=== PATIENT | male | born 1960 | race Caucasian/White ===

== ENCOUNTER 2017-03-01 21:42 | Emergency (ER) | payer MEDICARE ==
--- NOTE | 2017-03-11 16:41 | ER ---
ADMIT: 03/01/2017 RM/LOC: ER [facility] MR#: [id number] [address] [id number] [place] [id number] [place] [id number] Emergency Room Report SEX: M AGE: 56 : 1960 DATE: 03/01/2017 A 56-year-old male comes to the Emergency Department with sudden onset of left- sided abdominal pain approximately 1 hour duration, sharp, stabbing. See T- sheet for remainder of history and physical. CT scan revealed a 4 mm calculus within the mid-left ureter. UA was unremarkable. The patient's pain was controlled. He was given a prescription for [place]. He has Flomax. He was instructed to follow up with Urology this week and to drink plenty of fluids. Tom Grey MD/ russ JOB #: [id number] CC: Tristian Latif MD, Attending Physician Other Physician, Family Physician
== END 2017-03-01 23:25 | disposition home or self-care (01) ==
LOC: ER 21:42
DX: N13.2 Hydronephrosis with renal and ureteral calculous obstruction (principal); I10 Essential (primary) hypertension; Z98.890 Other specified postprocedural states; Z90.89 Acquired absence of other organs; Z79.899 Other long term (current) drug therapy; Z87.438 Personal history of other diseases of male genital organs